=== PATIENT | male | born 1995 | race Caucasian/White ===

== ENCOUNTER 2017-09-20 16:01 | Inpatient (IN) | payer SELFPAY, OTHER ==
[2017-09-20] MEDS: ONDANSETRON PF 4 MG/2 ML VIAL. IV (16:15)
[2017-09-20] MEDS: IV NORMAL SALINE 1000ML BAG 1,000 ML IV ×2 (16:15→21:35)
[2017-09-20 16:26] LABS: ADD MAN DIFF? NO
[2017-09-20 16:46] LABS: BASO # 0.1 x10^3/uL (0.0-0.2); BASO % 1 % (0-3); EOS # 0.1 x10^3/uL (0.0-0.7); EOS % 1 % (0-3); HEMATOCRIT 44.7 % (39.0-53.0); HEMOGLOBIN 15.5 g/dL (13.0-17.5); LYMPH # 1.9 x10^3/uL (1.0-4.8); LYMPH % 36 % (24-48); MEAN CORPUSCULAR HEMOGLOBIN 32 pg (25-35); MEAN CORPUSCULAR HGB CONC 35 g/dL (31-37); MEAN CORPUSCULAR VOLUME 91 fL (79-100); MONO # 0.6 x10^3/uL (0.0-1.1); MONO % 11 % (0-9); NEUT # 2.6 x10^3uL (1.8-7.7); NEUT % 50 % (31-73); PLATELET COUNT 337 x10^3/uL (140-400); RED BLOOD COUNT 4.89 x10^6/uL (4.30-5.70); RED CELL DISTRIBUTION WIDTH 12.4 % (11.5-14.5); WHITE BLOOD COUNT 5.1 x10^3/uL (4.0-11.0)
[2017-09-20 16:54] LABS: ANION GAP 5 (6-14); BLOOD UREA NITROGEN 24 mg/dL (8-26); BUN/CREATININE RATIO 24 (6-20); CALCIUM 9.5 mg/dL (8.5-10.1); CARBON DIOXIDE 27 mmol/L (21-32); CHLORIDE 105 mmol/L (98-107); GFR 93.4; GLUCOSE 115 mg/dL (70-99); POTASSIUM 3.8 mmol/L (3.5-5.1); SODIUM 137 mmol/L (136-145)
[2017-09-20 17:00] LABS: ALBUMIN 4.3 g/dL (3.4-5.0); ALBUMIN/GLOBULIN RATIO 1.1 (1.0-1.7); ALK PHOS 80 U/L (46-116); ALT (SGPT) 22 U/L (16-63); AST (SGOT) 18 U/L (15-37); LIPASE 774 U/L (73-393); MAGNESIUM 2.1 mg/dL (1.8-2.4); TOTAL BILIRUBIN 0.4 mg/dL (0.2-1.0); TOTAL PROTEIN 8.1 g/dL (6.4-8.2)
[2017-09-20 17:00] LABS: ETHANOL < 10 mg/dL (0-10)
[2017-09-20 17:02] LABS: TROPONINI < 0.017 ng/mL (0.000-0.055)
[2017-09-20 17:13] LABS: THYROID STIM HORMONE (TSH) 1.685 uIU/mL (0.358-3.74)
[2017-09-20 17:14] LABS: BILIRUBIN,URINE NEGATIVE (NEG); CLARITY,URINE CLOUDY; COLOR,URINE YELLOW; GLUCOSE,URINE NEGATIVE (NEG); NITRITE,URINE NEGATIVE (NEG); PROTEIN,URINE NEGATIVE (NEG-TRACE); UROBILINOGEN,URINE 0.2 mg/dL (0.2 mg/dL)
[2017-09-20 17:16] LABS: CKMB MASS < 0.5 ng/mL (0.0-3.6); CREATINE KINASE 108 U/L (39-308)
[2017-09-20 17:16] LABS: NT-PRO BNP 20 pg/mL (0-124)
[2017-09-20 17:19] LABS: AMPHETAMINE/METHAMPHETAMINE NEG (NEG); BARBITURATES NEG (NEG); BENZODIAZEPINES NEG (NEG); CANNABINOIDS NEG (NEG); COCAINE NEG (NEG); ETHANOL, URINE NEG (NEG); METHADONE NEG (NEG); OPIATES NEG (NEG); PHENCYCLIDINE NEG (NEG)
[2017-09-20 17:22] LABS: AMORPHOUS SEDIMENT,UR PRESENT /HPF; BACTERIA,URINE 0 /HPF (0-FEW); RBC,URINE 0 /HPF (0-2); WBC,URINE 0 /HPF (0-4)
[2017-09-20] MEDS ORDERED: CONTRAST GIVEN. MC (17:45)
[2017-09-20] MEDS: IOHEXOL 300 MG/ML 100ML VIAL. IV (18:00)
[2017-09-20] MEDS ORDERED: ONDANSETRON PF 4 MG/2 ML VIAL. IV (19:15)
[2017-09-20] MEDS ORDERED: fentaNYL PF VIAL 100 MCG/2 ML VIAL IV (19:15)
[2017-09-20] MEDS: PANTOPRAZOLE IV PUSH 40 MG VIAL. IVP (19:30)
[2017-09-20 21:19] LABS: POC GLUCOSE 85 mg/dL (70-99)
[2017-09-21 07:30] LABS: ADD MAN DIFF? NO
[2017-09-21 07:37] LABS: BASO # 0.1 x10^3/uL (0.0-0.2); BASO % 1 % (0-3); EOS # 0.1 x10^3/uL (0.0-0.7); EOS % 1 % (0-3); HEMATOCRIT 42.6 % (39.0-53.0); HEMOGLOBIN 14.5 g/dL (13.0-17.5); LYMPH # 2.2 x10^3/uL (1.0-4.8); LYMPH % 33 % (24-48); MEAN CORPUSCULAR HEMOGLOBIN 31 pg (25-35); MEAN CORPUSCULAR HGB CONC 34 g/dL (31-37); MEAN CORPUSCULAR VOLUME 92 fL (79-100); MONO # 0.7 x10^3/uL (0.0-1.1); MONO % 11 % (0-9); NEUT # 3.6 x10^3uL (1.8-7.7); NEUT % 54 % (31-73); PLATELET COUNT 308 x10^3/uL (140-400); RED BLOOD COUNT 4.63 x10^6/uL (4.30-5.70); RED CELL DISTRIBUTION WIDTH 12.6 % (11.5-14.5); WHITE BLOOD COUNT 6.7 x10^3/uL (4.0-11.0)
[2017-09-21 07:52] LABS: ANION GAP 6 (6-14); BLOOD UREA NITROGEN 17 mg/dL (8-26); CARBON DIOXIDE 28 mmol/L (21-32); CHLORIDE 107 mmol/L (98-107); GFR 93.4; GLUCOSE 79 mg/dL (70-99); LIPASE 128 U/L (73-393); SODIUM 141 mmol/L (136-145)
[2017-09-21] MEDS: PANTOPRAZOLE IV PUSH 40 MG VIAL. IVP (08:54)
[2017-09-21] MEDS ORDERED: FLUoxetine HCL 20 MG CAPSULE PO (16:00)
== END 2017-09-21 11:40 | disposition home or self-care (01) | DRG 640 ==
LOC: 6 SOUTH 20:11 → ER 16:01 → 6 SOUTH 18:50
DX: E86.0 Dehydration (principal); K85.90 Acute pancreatitis without necrosis or infection, unspecified; G40.89 Other seizures; F32.9 Major depressive disorder, single episode, unspecified; Z90.49 Acquired absence of other specified parts of digestive tract; F41.9 Anxiety disorder, unspecified; Z79.899 Other long term (current) drug therapy; F44.5 Conversion disorder with seizures or convulsions
CPT/HCPCS: 36415; 70450; 71045; 74177; 80048; 80053; 80307; 81001; 82553; 82962; 83690; 83735; 83880; 84443; 84484; 85025; 93005; 96360; 99285; 99285-25; C9113; G0480; J7030